=== PATIENT | male | born 1960 | race Hispanic/Latino ===

== ENCOUNTER 2020-11-30 21:16 | Emergency (ER) | payer OTHER ==
--- OUTSIDE RECORDS SUMMARY | 2020-11-30 21:19 | XMS REPORT | Continuity of Care Document ---
:1960 Author Organization [facility] t Address [address] [place] [address] [address]. [address] [place] [address] Care Team Providers Name Role Phone Devin Abarca DO Attending Clinician Problems This patient has no known problems. Allergies, Adverse Reactions, Alerts This patient has no known allergies or adverse reactions. Medications This patient has no known medications. Procedures This patient has no known procedures. Encounters Start End Encounter Admission Attending Care Care Encounter Source Date/Time Date/Time Type Type Clinicians Facility Department ID 2020-11-27 2020-11-27 Emergency DIMAS Abarca [id number] 09:12:00 10:23:00 Norma Sawyer [id number] [place] [id number] [place] [id number] Results This patient has no known results.
[2020-12-01] MEDS ORDERED: ALBUTEROL 2.5 MG/3 ML NEB SOL ONE (01:14)
[2020-12-01] MEDS ORDERED: METHYLPREDNISOLONE 125 MG INJ ONE (01:14)
[2020-12-01] MEDS ORDERED: IPRATROPIUM BROM 0.5MG/2.5ML ONE (01:14)
--- NOTE | 2020-12-01 01:40 | ER ---
Nurse's Notes [facility] Name: Carl Velasco IV Age: 60 yrs Sex: Male : 1960 Arrival Date: 11/30/2020 Time: 22:10 Bed 23 Private MD: Diagnosis: Other viral pneumonia-with COVID 19 Presentation: 11/30 22:11 Chief complaint: EMS states: Covid+ and FLU+ 11 days [employer]. Called EMS for coughing ca1 episodes and SOB with coughing. SPO2 at 91% RA. Placed on O2 via NC at 2LPM, SPO2 increased to 96-97%. Coronavirus screen: Client reports previous positive COVID test result. Date of collection: November 19, 2020 Staff notified of need for isolation. Ebola Screen: Patient negative for fever greater than or equal to 101.5 degrees Fahrenheit, and additional compatible Ebola Virus Disease symptoms Patient denies exposure to infectious person. Patient denies travel to an Ebola-affected area in the 21 days before illness onset. No symptoms or risks identified at this time. Initial Sepsis Screen: Does the patient meet any 2 criteria? No. Patient's initial sepsis screen is negative. Does the patient have a suspected source of infection? No. Patient's initial sepsis screen is negative. Risk Assessment: Do you want to hurt yourself or someone else? Patient reports no desire to harm self or others. Onset of symptoms was November 19, 2020. 22:11 Method Of Arrival: EMS: [facility] ca1 22:11 Acuity: ANALI 3 ca1 Historical: - Allergies: 22:14 No Known Allergies; ca1 - PMHx: 22:14 Hypercholesterolemia; Hypothyroidism; ca1 - PSHx: 22:14 None; ca1 - Immunization history:: Client reports having NOT received the Covid vaccine. Flu vaccine is not up to date. - Social history:: Smoking status: Patient denies any tobacco usage or history of. - Family history:: not pertinent. Screenin/30 01:09 Abuse screen: Denies threats or abuse. Nutritional screening: No deficits noted. ea Tuberculosis screening: No symptoms or risk factors identified. Fall Risk None identified. Assessment: 00:49 General: Appears uncomfortable, Behavior is appropriate for age. Pain: Denies pain. ea Neuro: Level of Consciousness is awake, alert, obeys commands, Oriented to person, place, time. Respiratory: Airway is patent Respiratory effort is even, unlabored, Respiratory pattern is regular, symmetrical. Derm: Skin is pink, warm \T\ dry. 01:57 Reassessment: Patient and/or family updated on plan of care and expected duration. Pain ea level reassessed. Patient is alert, oriented x 3, equal unlabored respirations, skin warm/dry/pink. Discharge instruction given to patient verbalized the understanding of instruction. Pt left ED ambulatory tolerating well. Vital Signs: 11/30 22:11 BP 111 / 64; Pulse 66; Resp 18 S; Temp 97.4(TE); Pulse Ox 99% on 2 lpm NC; Weight 90.72 ca1 kg (R); Height 5 ft. 9 in. (175.26 cm) (R); 12/01 01:55 BP 112 / 60; Pulse 60; Resp 18; Temp 98; Pulse Ox 99% ; ea 11/30 22:11 Body Mass Index 29.53 (90.72 kg, 175.26 cm) ca1 ED Course: 11/30 22:10 Patient arrived in ED. ca1 22:14 Triage completed. ca1 22:14 Arm band placed on right wrist. ca1 22:42 Chest Pa And Lat (2 Views) XRAY In Process Unspecified. EDMS 12/01 00:41 Arturo Quiros MD is Attending Physician. maBharat 00:49 Mary Jane Kay, FREDA is Primary Nurse. ea 01:10 Patient has correct armband on for positive identification. Bed in low position. Call ea light in reach. Side rails up X2. 01:56 No provider procedures requiring assistance completed. IV discontinued, intact, ea bleeding controlled, No redness/swelling at site. Pressure dressing applied. Administered Medications: 00:58 Drug: SOLU-Medrol (methylPREDNISolone sodium succinate) 125 mg Route: IM; Site: right ea deltoid; 01:56 Follow up: Response: No adverse reaction ea 00:58 Drug: Albuterol - atroVENT (ipratropium) (3:1) (2.5 mg - 0.5 mg) 3 ml Route: Nebulizer; ea 01:56 Follow up: Response: No adverse reaction ea Outcome: 01:40 Discharge ordered by . ma2 01:56 Discharged to home ambulatory, with family. ea 01:56 Condition: stable 01:56 Discharge instructions given to patient, Instructed on discharge instructions, Demonstrated understanding of instructions, follow-up care, Prescriptions given X 2. 01:58 Patient left the ED. rusty Signatures: Dispatcher [employer] Mary Jane López, RN RN Arturo Porras MD MD ma2 Maine May RN RN ca1
--- NOTE | 2020-12-01 01:40 | EDPHYS ---
Physician Documentation [facility] Name: Carl Velasco IV Age: 60 yrs Sex: Male : 1960 Arrival Date: 11/30/2020 Time: 22:10 Bed 23 Private MD: ED Physician Arturo Quiros HPI: 12/01 01:10 This 60 yrs old Male presents to ER via EMS with complaints of Cough, COVID+. ma2 01:10 Onset: The symptoms/episode began/occurred gradually, 2 day(s) ago. Severity of ma2 symptoms: At their worst the symptoms were moderate, in the emergency department the symptoms are unchanged. Associated signs and symptoms: Pertinent negatives: ear ache, nausea, rhinorrhea. The patient has experienced a previous episode. Historical: - Allergies: 11/30 22:14 No Known Allergies; ca1 - PMHx: 22:14 Hypercholesterolemia; Hypothyroidism; ca1 - PSHx: 22:14 None; ca1 - Immunization history:: Client reports having NOT received the Covid vaccine. Flu vaccine is not up to date. - Social history:: Smoking status: Patient denies any tobacco usage or history of. - Family history:: not pertinent. ROS: 12/01 01:10 Constitutional: Negative for fever, chills, and weight loss. ma2 All other systems are negative. Exam: 01:10 Constitutional: This is a well developed, well nourished patient who is awake, alert, ma2 and in no acute distress. Chest/axilla: Normal chest wall appearance and motion. Nontender with no deformity. No lesions are appreciated. Cardiovascular: Regular rate and rhythm with a normal S1 and S2. No gallops, murmurs, or rubs. Normal PMI, no JVD. No pulse deficits. Respiratory: sats are 96 on RA, otherwise Lungs have equal breath sounds bilaterally, clear to auscultation and percussion. No rales, rhonchi or wheezes noted. No increased work of breathing, no retractions or nasal flaring. Abdomen/GI: Soft, non-tender, with normal bowel sounds. No distension or tympany. No guarding or rebound. No evidence of tenderness throughout. Skin: Warm, dry with normal turgor. Normal color with no rashes, no lesions, and no evidence of cellulitis. Neuro: Awake and alert, GCS 15, oriented to person, place, time, and situation. Cranial nerves II-XII grossly intact. Motor strength 5/5 in all extremities. Sensory grossly intact. Cerebellar exam normal. Normal gait. Vital Signs: 11/30 22:11 BP 111 / 64; Pulse 66; Resp 18 S; Temp 97.4(TE); Pulse Ox 99% on 2 lpm NC; Weight 90.72 ca1 kg (R); Height 5 ft. 9 in. (175.26 cm) (R); 12/01 01:55 BP 112 / 60; Pulse 60; Resp 18; Temp 98; Pulse Ox 99% ; ea 11/30 22:11 Body Mass Index 29.53 (90.72 kg, 175.26 cm) ca1 MDM: 00:41 Patient medically screened. ma2 01:10 Differential Diagnosis: Bronchitis Influenza Upper Respiratory Infection Sinusitis. ma2 Data reviewed: vital signs, nurses notes. Counseling: I had a detailed discussion with the patient and/or guardian regarding: the historical points, exam findings, and any diagnostic results supporting the discharge/admit diagnosis, the presence of at least one elevated blood pressure reading (>120/80) during this emergency department visit. ED course: patient saw his doc today and takes steroid augmentin and z-pack and inhalors at home . 01:39 Response to treatment: the patient's symptoms have markedly improved after treatment. ma2 11/30 22:16 Order name: Chest Pa And Lat (2 Views) XRAY ca1 Administered Medications: 00:58 Drug: SOLU-Medrol (methylPREDNISolone sodium succinate) 125 mg Route: IM; Site: right ea deltoid; 01:56 Follow up: Response: No adverse reaction ea 00:58 Drug: Albuterol - atroVENT (ipratropium) (3:1) (2.5 mg - 0.5 mg) 3 ml Route: Nebulizer; ea 01:56 Follow up: Response: No adverse reaction ea Disposition Summary: 12/01/20 01:40 Discharge Ordered Location: Home ma2 Condition: Stable ma2 Diagnosis - Other viral pneumonia - with COVID 19 ma2 Followup: ma2 - With: Private Physician - When: Tomorrow - Reason: Continuance of care Discharge Instructions: - Discharge Summary Sheet ma2 - COVID-19 Frequently Asked Questions ma2 - 10 Things You Can Do to Manage Your COVID-19 Symptoms at Home - [facility] ma2 Forms: - Medication Reconciliation Form ma2 - Thank You Letter ma2 - Antibiotic Education ma2 - Prescription Opioid Use ma2 Prescriptions: - Tessalon Perles 100 mg Oral Capsule - take 1 capsule by ORAL route every 8 hours As needed; 15 capsule; Refills: 0, ma2 Product Selection Permitted - Albuterol Sulfate 2.5 mg /3 mL (0.083 %) Inhalation Solution for Nebulization - inhale 1 unit by NEBULIZATION route every 8 hours As needed; 1 box; Refills: 0, ma2 Product Selection Permitted Signatures: Dispatcher [employer] Mary Jane López RN RN Arturo Porras MD MD ma2 [place] May RN RN ca1
[2020-12-01 04:58] VITALS: BP 111/64; TEMP 97.4; O2SAT 99
--- NOTE | 2020-12-01 09:11 | RAD REPORT ---
EXAM DESCRIPTION: Jennifer Pa And Lat (2 Views)11/30/2020 10:42 pm CLINICAL HISTORY: Shortness of breath COMPARISON: None FINDINGS: Moderate bilateral pulmonary opacities. The heart is normal size IMPRESSION: Moderate bilateral pulmonary opacities probably pneumonia
== END 2020-12-01 01:58 | disposition home or self-care (01) ==
LOC: ER 21:16
DX: U07.1 COVID-19 (principal); J12.82 Pneumonia due to coronavirus disease 2019; E78.00 Pure hypercholesterolemia, unspecified; E03.9 Hypothyroidism, unspecified
CPT/HCPCS: 71046; 96372; 99284; J2930